=== PATIENT | female | born 1985 | race Caucasian/White ===

== ENCOUNTER 2017-07-01 09:09 | Emergency (ER) | payer OTHER ==
[~2017-07-01] VITALS: Ht 167.6 cm; Wt 54.4 kg
[~2017-07-01 09:09] MED LIST: ACETAMINOPHEN-1 EAC1 PO; CARAFATE 1 GM TA1 G1 PO; CIPRO; CIPRO250 M1 PO; CIPRO500 MG PO; CITRATE OF MAG296 ML PO; DIAZEPAM 5 MG5 M1 OR; DOXYCYCLINE 10100 MG PO; FLAGYL500 MG PO; FLOMAX0.4 MG PO; GABAPENTIN 100100 MG; HYDROCODON-ACE1 EAC7 PO; IBUPROFEN 800800 M1 PO; MOBIC7.5 MG PO; NAPROSYN500 MG PO; NITROGLYCERIN0.4 MG SL; NOHOMEMEDICATIONS; NORCO 5-325 TA1 EACH PO; ONDANSETRON HCL4 M2 PO; PERCOCET PO; PRAVACHOL40 MG PO; PRILOSEC 20 MG20 MG PO; ROBAXIN 750 MG750 M1 PO; ROBAXIN 750 MG750 MG PO; THYROID MEDICATION; ULTRAM 50MG TAB50 MG PO; XANAX 0.25 MG0.25 MG PO; ZOFRAN ODT4 MG PO
[2017-07-01] MEDS ORDERED: ROXICODONE5 MG PO (10:32)
[2017-07-01] MEDS ORDERED: ONDANSETRON HCL4 M2 PO (10:32)
== END 2017-07-01 10:57 | disposition home or self-care (01) ==
LOC: ER 09:09
DX: Z48.00 Encounter for change or removal of nonsurgical wound dressing (principal); R11.2 Nausea with vomiting, unspecified; F32.9 Major depressive disorder, single episode, unspecified; F17.210 Nicotine dependence, cigarettes, uncomplicated; Z90.49 Acquired absence of other specified parts of digestive tract; Z90.710 Acquired absence of both cervix and uterus; Z88.6 Allergy status to analgesic agent; Z88.8 Allergy status to other drugs, medicaments and biological substances; Z88.0 Allergy status to penicillin

== ENCOUNTER 2017-07-04 14:29 | Emergency (ER) | payer OTHER ==
[~2017-07-04] VITALS: Ht 167.6 cm; Wt 56.7 kg
[~2017-07-04 14:29] MED LIST changes: +ROXICODONE5 MG PO
[2017-07-04] MEDS ORDERED: PERCOCET 10-321 EACH PO (15:13)
[2017-07-04] MEDS ORDERED: PHENERGAN 25 MG25 M1 PO (15:36)
[2017-07-04] MEDS ORDERED: MOBIC15 MG PO (15:38)
== END 2017-07-04 16:23 | disposition home or self-care (01) ==
LOC: ER 14:29
DX: G89.18 Other acute postprocedural pain (principal); F32.9 Major depressive disorder, single episode, unspecified; G40.909 Epilepsy, unspecified, not intractable, without status epilepticus; F17.210 Nicotine dependence, cigarettes, uncomplicated; Z90.710 Acquired absence of both cervix and uterus; Z87.440 Personal history of urinary (tract) infections; Z90.49 Acquired absence of other specified parts of digestive tract; Z88.6 Allergy status to analgesic agent; Z88.5 Allergy status to narcotic agent; Z88.1 Allergy status to other antibiotic agents; Z88.0 Allergy status to penicillin